=== PATIENT | female | born 1940 | race Caucasian/White ===

== ENCOUNTER → 2016-12-31 | Outpatient (CLI) | payer MEDICARE, OTHER ==
[~2016-12-31] MED LIST: ALOE VESTA141 GM TOP; AMBIEN5 MG PO; ASPIRIN LO-DOSE81 MG PO; ASPIRIN-ACETAM1 EACH PO; AVALIDE 150-121 EACH PO; CALCIUM CARBON600 MG PO; CALCIUM600 MG PO; CATAPRES0.2 MG PO; CLOBETASOL EMOL30 GM TOP; CYMBALTA30 MG PO; DITROPAN5 MG PO; DULCOLAX10 MG R; EXCEDRIN EXTRA1 TAB PO; FLONASE 50 MCG/16 GM NOSE; GLUCOSE4 GM PO; GLUCOTROL XL10 MG PO; HYDROCORT 1/2 %30 GM TOP; LEVEMIR FL100 UNIT/1 SUB-Q; MILK OF MA400 MG/5 M PO; MIRALAX17 GM PO; MOTRIN400 MG PO; MYRBETRIQ50 MG PO; NORVASC10 MG PO; NOVOLOG FL100 UNIT/1 SUB-Q; PEPTO-BISMOL262 MG PO; PRESERVISION A1 EAC1 PO; PRESERVISION A1 EAC2 PO; REFRESH OPTIVE15 ML OPHTH; REFRESH TEARS15 ML OPHTH; TAB-A-VITE1 EACH PO; TEMOVATE 0.05%45 GM TOP; TENORMIN100 MG PO; TERAZOSIN HCL10 MG PO; THERAGRAN-M1 TAB PO
== END | disposition disaster alternative care site (69) ==
LOC: LHAL 12-30 11:29
DX: E10.9 Type 1 diabetes mellitus without complications (principal)

== ENCOUNTER → 2017-02-09 | Outpatient (CLI) | payer MEDICARE, OTHER | LOC: LFPA 16:18 | DX: R35.0 Frequency of micturition (principal) ==

== ENCOUNTER → 2017-02-11 | Outpatient (CLI) | payer MEDICARE, OTHER | END | disposition disaster alternative care site (69) | LOC: LHAL 02-10 16:56 | DX: E78.00 Pure hypercholesterolemia, unspecified (principal) ==

== ENCOUNTER → 2017-02-20 | Day surgery (SDC) | payer MEDICARE, OTHER ==
[~2017-02-20] VITALS: Ht 160 cm; Wt 109.0 kg
--- NOTE | ~2017-02-20 | OR ---
PATIENT'S NAME: NAHED BAILEY [facility] AGE: 76 Y [address] ROOM: [place] [address] LOCATION: [facility] ADMIT DATE: 02/20/2017 OR/Procedure Report DISCHARGE DATE: FAMILY PHYSICIAN: Carina Hines MD ATTENDING PHYSICIAN: Danica Clemons SURGEON: Danica Clemons MD PARK RANGER: DATE OF PROCEDURE: 02/20/2017 PREOPERATIVE DIAGNOSIS: Bladder instability (OAB). POSTOPERATIVE DIAGNOSIS: Bladder instability (OAB). PROCEDURE PERFORMED: Cystoscopy with Botox injection. ANESTHESIA: MAC. COMPLICATIONS: None. INDICATION FOR PROCEDURE: The patient is a 76-year-old female with overactive bladder characterized by urinary urgency, frequency, and urge incontinence. The patient failed 2 types of anticholinergic medications and also kind voiding. DETAILS OF PROCEDURE: After informed consent was obtained, the patient was taken to the operating room. A MAC anesthetic was applied and she was placed in the dorsal lithotomy position. The groin area was prepped and draped in normal sterile fashion. Cystoscope was introduced in the urethra and bladder without difficulty. The bladder was inspected and there was no abnormalities noted. Next, 100 units of Botox and a 10 mL syringe was attached to the end of the needle. The needle was clear of bubbles and then needle was placed directly into the bladder wall and 1 mL was injected. We then moved over in a row and injected 4 more times. Then, a second row above this, the process was repeated. A total of 10 injections for a total of 10 mL of the 100 units mixed with saline were injected. The patient tolerated the procedure well. The bladder was empty and she was transferred to recovery room in good condition. MD TROY SMITH/briseydal PATIENT'S NAME: NAHED BAILEY [facility] AGE: 76 Y [address] ROOM: [place] [address] LOCATION: [facility] ADMIT DATE: 02/20/2017 OR/Procedure Report DISCHARGE DATE: FAMILY PHYSICIAN: Carina Hines MD ATTENDING PHYSICIAN: Danica Clemons /[id number] CC: Carina Hines MD d: 02/20/17 2135 t: 03/10/17 1340, OPERATIVE SUMMARY
[2017-02-20 12:47] LABS: BASOPHIL % 0.2 %; EOSINOPHIL # 0.2 K/uL (0.0-0.5); EOSINOPHIL % 1.8 %; HEMATOCRIT 38.8 % (33.0-46.0); HEMOGLOBIN 12.2 g/dL (10.0-15.0); IMMATURE GRANULOCYTE % 0.4 %; LYMPHOCYTE % 12.3 %; MCH 25.2 pg (27.0-34.0); MCHC 31.4 gm/dL (32.0-36.5); MONOCYTE # 0.6 K/uL (0.0-1.0); MONOCYTE % 6.7 %; MPV 8.6 fl (9.4-12.4); NEUTROPHIL # (ANC) 6.5 K/uL (1.8-7.8); NEUTROPHIL % 78.6 %; NRBC % 0 /100WBC (0-0.00); PLATELET COUNT 185 K/uL (150-450); RBC 4.85 M/uL (3.50-5.50); RDW-CV 15.9 % (11.9-14.6); WBC 8.2 K/uL (4.0-11.0)
[2017-02-20 13:04] LABS: ALK PHOS 87 IU/L (33-138); ALT 23 IU/L (12-78); BLOOD UREA NITROGEN 14 mg/dL (6-24); CALCIUM 8.7 mg/dL (8.5-10.5); CHLORIDE 101 mMol/L (96-110); CO2 31 mMol/L (22-32); CREATININE 0.7 mg/dL (0.5-1.1); ESTIMATED GFR (MDRD EQUATION) > 60; SODIUM 137 mMol/L (135-145); TOTAL BILIRUBIN 0.5 mg/dL (0.0-1.5); TOTAL PROTEIN 6.6 g/dL (6.0-8.4)
[2017-02-20 13:05] LABS: ANION GAP 9.4 (10.0-19.0); AST 24 IU/L (10-40); POTASSIUM 4.4 mMol/L (3.7-5.1)
== END | disposition disaster alternative care site (69) ==
LOC: GPOC 02-13 14:00 → GSDC 12:00
PROVIDERS: Urology
PROC: 3E0K8GC Introduction of Other Therapeutic Substance into Genitourinary Tract, Via Natural or Artificial Opening Endoscopic (ICD-10-PCS; principal; 2017-02-20)
DX: N32.81 Overactive bladder (principal); I10 Essential (primary) hypertension; I25.10 Atherosclerotic heart disease of native coronary artery without angina pectoris; E11.9 Type 2 diabetes mellitus without complications; M81.0 Age-related osteoporosis without current pathological fracture; F32.9 Major depressive disorder, single episode, unspecified; Z90.49 Acquired absence of other specified parts of digestive tract; Z98.890 Other specified postprocedural states
CPT/HCPCS: J0585; J1956; J2405; J7030